=== PATIENT | female | born 1980 | race Caucasian/White ===

== ENCOUNTER 2016-09-17 15:55 | Emergency (ER) | payer MEDICAID ==
[2016-09-17 17:11] VITALS: BP 145/104
[2016-09-17] MEDS ORDERED: Ketorolac 60 MG/2 ML SDV IM ONE (17:18)
--- NOTE | 2016-09-17 17:32 | EDM.PDOC ---
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 She has severe tooth pain and would not get to a dentist until after the . 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 ) Location: Reports: Face Associated Symptoms: Reports: No Other Symptoms - Related Data Allergies Allergy/AdvReac Type Severity Reaction Status Date / Time No Known Allergies Allergy Verified 07/01/13 18:16 Home Meds: Home Meds Eletriptan [Relpax] 40 mg PO DAILY 07/01/13 [History] Dextroamphetamine/Amphetamine [Adderall] 20 mg PO TID 05/20/14 [History] Social & Family History - Tobacco Use Smoking Status *Q: Current Every Day Smoker Years of Tobacco use: 8 ED ROS ENT - Review of Systems Review Of Systems: See Below Constitutional: Reports: No Symptoms HEENT: Reports: Dental Pain Respiratory: Reports: No Symptoms Cardiovascular: Reports: No Symptoms Endocrine: Reports: No Symptoms GI/Abdominal: Reports: No Symptoms : Reports: No Symptoms ED EXAM, ENT - Physical Exam Exam: See Below Text/Narrative:: pt has pain in the left upper molar area. She is very uncomfortable today. 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 Exam Limited By: No Limitations General Appearance: Alert, Mild Distress Ears: Normal TMs Nose: Normal Inspection Mouth/Throat: Dental Pain, Dental Tenderness, Other ( pt has a carious tooth in the leftlar are. upper molar area. this tooth is very tender. ) Head: Atraumatic Neck: Normal Inspection Respiratory/Chest: No Respiratory Distress Course - Vital Signs Last Recorded V/S: Last Vital Signs Temp 35.9 C 09/17/16 17:09 Pulse 94 09/17/16 17:09 Resp 14 09/17/16 17:09 BP 145/104 H 09/17/16 17:09 Pulse Ox 99 09/17/16 17:09 - Orders/Labs/Meds Meds: Medications Discontinued Medications Generic Name Dose Route Start Last Admin Trade Name Sil PRN Reason Stop Dose Admin Ketorolac Tromethamine 60 mg 09/17/16 17:18 Toradol IM 09/17/16 17:19 ONETIME ONE - Re-Assessments/Exams Free Text/Narrative Re-Assessment/Exam: 09/17/16 17:39 pt was given torodol 60mg im for pain. Departure - Departure Time of Disposition: 17:33 Disposition: Home, Self-Care 01 Condition: Fair Clinical Impression: Infected tooth - Discharge Information Referrals: Kiah Graham PA [Primary Care Provider] - Forms: ED Department Discharge Care Plan Goals: dental appt on Thursday at 8 fifteen., amoxicillin 500mg tid, tramodol 50mg q6h as needed for pain.
== END 2016-09-17 17:51 | disposition home or self-care (01) ==
LOC: JP.ED 15:55
DX: K04.7 Periapical abscess without sinus (principal); F17.210 Nicotine dependence, cigarettes, uncomplicated; Z79.899 Other long term (current) drug therapy
CPT/HCPCS: 96372; 99283; J1885

== ENCOUNTER 2016-09-17 20:38 | Emergency (ER) | payer MEDICAID | END 2016-09-17 21:00 | disposition left against medical advice (07) | LOC: JP.ED 20:38 | DX: Z53.21 Procedure and treatment not carried out due to patient leaving prior to being seen by health care provider (principal) ==

== ENCOUNTER 2016-09-18 21:19 | Emergency (ER) | payer MEDICAID ==
[2016-09-18 21:32] VITALS: BP 161/120
--- NOTE | 2016-09-18 21:48 | EDM.PDOC ---
ED HPI GENERAL MEDICAL PROBLEM - General Chief Complaint: ENT Problem Stated Complaint: TOOTH PAIN Time Seen by Provider: 09/18/16 21:33 Source of Information: Reports: Patient History Limitations: Reports: No Limitations - History of Present Illness INITIAL COMMENTS - FREE TEXT/NARRATIVE: dental pain; this is the 3 rd visit this week for dental pain tooth #30. she was seen by providers given Tramadol #20 tabs, has taken 6 tabs, not helping with pain, and amoxicillin x 24 hours. here for evaluation. she has appointment on September 24, 2016. 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: Other (see below) - Related Data Allergies Allergy/AdvReac Type Severity Reaction Status Date / Time No Known Allergies Allergy Verified 07/01/13 18:16 Home Meds: Home Meds Eletriptan [Relpax] 40 mg PO DAILY 07/01/13 [History] Dextroamphetamine/Amphetamine [Adderall] 20 mg PO TID 05/20/14 [History] Past Medical History [employer] History: Reports: Neurological History: Reports: Migraines - Past Surgical History GI Surgical History: Reports: Appendectomy, Cholecystectomy Female Surgical History: Reports: Section, Tubal Ligation Social & Family History - Tobacco Use Smoking Status *Q: Current Every Day Smoker Years of Tobacco use: 10 Packs/Tins Daily: 0.2 Used Tobacco, but Quit: No - Caffeine Use Caffeine Use: Reports: Soda - Recreational Drug Use Recreational Drug Use: No ED ROS ENT - Review of Systems Review Of Systems: See Below Constitutional: Reports: Other (in pain/distress) HEENT: Reports: Dental Pain Respiratory: Reports: No Symptoms Cardiovascular: Reports: No Symptoms ED EXAM, ENT - Physical Exam Exam: See Below Exam Limited By: No Limitations General Appearance: Alert, WD/WN, Mild Distress Eye Exam: Bilateral Eye: Normal Inspection Ears: Normal External Exam Nose: Normal Inspection Mouth/Throat: Dental Pain (tooth has filling loss, expose middle portion of tooth, extreme pain to light touch. gums tender to touch), Dental Tenderness Head: Atraumatic, Normocephalic Neck: Normal Inspection, Supple, Non-Tender, Full Range of Motion Respiratory/Chest: No Respiratory Distress Course - Vital Signs Last Recorded V/S: Last Vital Signs Temp 37.4 C 09/18/16 21:33 Pulse 108 H 09/18/16 21:33 Resp 20 09/18/16 21:33 BP 161/120 H 09/18/16 21:33 Pulse Ox 97 09/18/16 21:33 Departure - Departure Time of Disposition: 21:56 Disposition: Home, Self-Care 01 Condition: Good Clinical Impression: Dental caries extending into dentin - Discharge Information Referrals: Kiah Graham PA [Primary Care Provider] - Forms: ED Department Discharge Care Plan Goals: dental pain -continue to take Amoxicillin as prescribed -continue to take Motrin or Tylenol for pain -continue Tramadol as directed for pain -script Hydrocodone 5-325mg; take one every 4 to6 hours as needed for pain #6 advise soft diet, avoid crunchy, spicy foods apply heat or ice to face for comfort Keep appointment with Dental Clinic Given phone number for [facility] to be seen for dental care damien. - Problem List & Annotations (1) Dental caries extending into dentin SNOMED Code(s): 156655749 Code(s): K02.62 - DENTAL CARIES ON SMOOTH SURFACE PENETRATING INTO DENTIN Status: Acute Priority: Medium Current Visit: Yes - Problem List Review Problem List Initiated/Reviewed/Updated: Yes - Assessment/Plan Plan: dental pain -continue to take Amoxicillin as prescribed -continue to take Motrin or Tylenol for pain -continue Tramadol as directed for pain -script Hydrocodone 5-325mg; take one every 4 to6 hours as needed for pain #6 advise soft diet, avoid crunchy, spicy foods apply heat or ice to face for comfort Keep appointment with Dental Clinic Given phone number for [facility] to be seen for dental care damien.
== END 2016-09-18 22:09 | disposition home or self-care (01) ==
LOC: JP.ED 21:19
DX: K02.9 Dental caries, unspecified (principal); G43.909 Migraine, unspecified, not intractable, without status migrainosus; F17.210 Nicotine dependence, cigarettes, uncomplicated; Z90.49 Acquired absence of other specified parts of digestive tract; Z98.51 Tubal ligation status; Z79.899 Other long term (current) drug therapy
CPT/HCPCS: 99283

== ENCOUNTER 2018-05-13 14:31 | Emergency (ER) | payer MEDICAID ==
[2018-05-13 14:55] VITALS: BP 172/107
--- NOTE | 2018-05-13 15:12 | EDM.PDOC ---
ED HPI GENERAL MEDICAL PROBLEM - General Chief Complaint: General Stated Complaint: ABCESSED TOOTH/POSSIBLE INFECTION Time Seen by Provider: 05/13/18 15:00 Source of Information: Reports: Patient History Limitations: Reports: No Limitations - History of Present Illness INITIAL COMMENTS - FREE TEXT/NARRATIVE: 38-year-old female with a right mandibular dental pain, was seen in the dentist 2 days ago and started on clindamycin. She feels she is not improving so she called the dentist and he told her to come to the emergency room for "IV antibiotics". She's had no fever or chills. It hurts under the right mandible when she swallows which is unchanged. No vomiting. Onset: Gradual Duration: Day(s): (Several days) Location: Reports: Face Associated Symptoms: Reports: Malaise. Denies: Fever/Chills, Shortness of Breath Right Lower Jaw Pain Score (Numeric/FACES): 9 - Related Data Allergies Allergy/AdvReac Type Severity Reaction Status Date / Time No Known Allergies Allergy Verified 05/13/18 14:51 Home Meds: Home Meds Eletriptan [Relpax] 40 mg PO DAILY 07/01/13 [History] Dextroamphetamine/Amphetamine [Adderall] 20 mg PO TID 05/20/14 [History] Methadone HCl [Methadone] 100 mg PO DAILY 05/13/18 [History] Past Medical History HEENT History: Reports: Other (See Below) Other HEENT History: Dental Carries Gastrointestinal History: Reports: None Genitourinary History: Reports: None 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: Neurological History: Reports: Migraines - Infectious Disease History Infectious Disease History: Reports: Chicken Pox - Past Surgical History Head Surgeries/Procedures: Reports: None GI Surgical History: Reports: Appendectomy, Cholecystectomy Female Surgical History: Reports: Section, Tubal Ligation Neurological Surgical History: Reports: None Dermatological Surgical History: Reports: None Social & Family History - Family History Family Medical History: Unobtainable - Tobacco Use Smoking Status *Q: Current Every Day Smoker Years of Tobacco use: 15 Packs/Tins Daily: 0.5 Used Tobacco, but Quit: No - Caffeine Use Caffeine Use: Reports: Coffee, Soda - Recreational Drug Use Recreational Drug Use: Yes Drug Use in Last 12 Months: No ED ROS GENERAL - Review of Systems Review Of Systems: See Below Constitutional: Reports: Malaise, Decreased Appetite. Denies: Fever, Chills HEENT: Reports: Dental Pain Respiratory: Reports: No Symptoms Cardiovascular: Reports: No Symptoms GI/Abdominal: Reports: Nausea. Denies: Vomiting : Reports: No Symptoms Skin: Denies: Erythema ED EXAM, GENERAL - Physical Exam Exam: See Below Exam Limited By: No Limitations General Appearance: Alert, No Apparent Distress Throat/Mouth: Other (There is advanced dental decay of the right second molar but no significant gingival erythema or swelling) Head: Other (There is slight fullness in the submandibular area with tenderness on the right side, no swelling over the mandible itself or the ducal mucosa.) Neck: No: Lymphadenopathy (R), Lymphadenopathy (L) Course - Vital Signs Last Recorded V/S: Last Vital Signs Temp 98.1 F 05/13/18 14:55 Pulse 93 05/13/18 14:55 Resp 16 05/13/18 14:55 BP 172/107 H 05/13/18 14:55 Pulse Ox 99 05/13/18 14:55 - Orders/Labs/Meds Meds: Medications Discontinued Medications Generic Name Dose Route Start Last Admin Trade Name Freq PRN Reason Stop Dose Admin Ampicillin Sodium/Sulbactam 50 mls @ 100 mls/hr 05/13/18 15:16 05/13/18 15:28 Sodium 1.5 gm/ Sodium Chloride IV 05/13/18 15:45 100 mls/hr ONETIME ONE Administration Methylprednisolone Sodium Succinate 125 mg 05/13/18 15:26 05/13/18 15:52 Solu-Medrol IVPUSH 05/13/18 15:27 125 mg ONETIME ONE Administration - Re-Assessments/Exams Free Text/Narrative Re-Assessment/Exam: 05/13/18 15:19 Discussed the case with the dentist. We will give the patient 1.5 g of IV Unasyn and she can continue the clindamycin. 05/13/18 15:26 Patient was also given 125 mg of IV Solu-Medrol. Departure - Departure Time of Disposition: 15:58 Disposition: Home, Self-Care 01 Condition: Good Clinical Impression: Dental abscess - Discharge Information Instructions: Dental Abscess, [id number] Referrals: Kiah Graham PA [Primary Care Provider] - Forms: ED Department Discharge Care Plan Goals: Continue with your antibiotic as prescribed. Recheck in the next 2-3 days if not improving satisfactorily.
[2018-05-13] MEDS ORDERED: Ampicillin/Sulbactam Na 1.5 GM in Sodium Chloride 0.9% 50 ML IV ONE (15:16)
[2018-05-13] MEDS ORDERED: methylPREDNISolone Sodium Succinate 125 MG/2 ML SDV IVPUSH ONE (15:26)
== END 2018-05-13 16:00 | disposition home or self-care (01) ==
LOC: JP.ED 14:31
DX: K04.7 Periapical abscess without sinus (principal); F17.210 Nicotine dependence, cigarettes, uncomplicated; Z79.899 Other long term (current) drug therapy
CPT/HCPCS: 96365; 96375; 99283; J0287; J2930; J7050

== ENCOUNTER 2020-07-05 05:41 | Day surgery (SDC) | payer MEDICAID ==
[2020-07-05] MEDS ORDERED: Dextrose 5%-Lactated Ringers 1,000 ML IV SCH (06:15)
[2020-07-05] MEDS ORDERED: Propofol 200 MG/20 ML SDV ONE (07:01)
[2020-07-05] MEDS ORDERED: Midazolam 1 MG/ML 2 ML SDV ONE (07:01)
[2020-07-05] MEDS ORDERED: fentaNYL 100 MCG/2 ML SDV ONE (07:01)
[2020-07-05] MEDS ORDERED: Glycopyrrolate 0.2 MG/ML 2 ML SDV IVPUSH ONE (07:15)
[2020-07-05 09:15] VITALS: BP 126/77; PULSE 85
[2020-07-05] MEDS ORDERED: fentaNYL 250 MCG/5 ML SDV ONE (11:11)
--- NOTE | 2020-07-09 13:12 | OR ---
DATE OF PROCEDURE: 07/05/2020 SURGEON: Olvin Fernando MD PREOPERATIVE DIAGNOSIS: Severe gastroesophageal reflux disease. POSTOPERATIVE DIAGNOSIS: Severe reflux symptoms secondary to marked gastroparesis with a massive gastric bezoar. OPERATIVE PROCEDURE: Esophagogastroduodenoscopy with antral biopsies for CLOtest. ANESTHESIA: IV sedation. INDICATIONS FOR PROCEDURE: This is a 40-year-old female presenting with progressively worsening reflux symptoms despite ongoing proton pump inhibitor use. For diagnostic purposes, the patient had undergone upper endoscopy with biopsies as indicated. Potential risks including bleeding and perforation were discussed, and the patient wishes to proceed. DETAILS OF PROCEDURE: The patient was taken to the operating room, placed in a left lateral decubitus position. IV sedation was administered, after which the upper GI endoscope was passed orally through the length of the esophagus into the stomach with retroflexion view of the fundus, and thereafter through the pyloric channel into the junction of the third and fourth portions of the duodenum. Findings included some reddening in the hypopharynx and larynx consistent with some ongoing reflux within the esophagus. There was no significant hiatal hernia and no gross inflammation or upward migration of the gastroesophageal junction or mucosal line; however, the striking finding was in the stomach with the gastric volume being released half full of old vegetable type matter consistent with a large bezoar and indicative of the patient having had quite severe gastroparesis. She is not diabetic at least at this point diagnostically, but is on chronic high-dose narcotics which are unlikely to be able to be eliminated. There was some reddening in the antrum probably related to pressure over this gastric wall related to the bezoar. The pyloric channel was wide open and visualized portions of the duodenum were unremarkable. The scope was pulled back into the antrum. Biopsy obtained there from the antrum for CLOtest for H pylori. Minimal bleeding from the biopsy sites was seen and the procedure then concluded. After discussion of the situation with the patient it is evident that she has severe gastroparesis and unlikely to have a satisfactory long-term outcome with regard to medical management. If the patient was much older, one would try to walk her through this, but at age 40, she would like to have more of a definitive procedure and we will plan to proceed tomorrow with a high partial gastrectomy with Eugenia-en-Y gastric gastrojejunostomy and possible esophagogastrectomy depending on the quality of the stomach at the level of the esophagogastric junction. The situation will be reviewed further tomorrow morning with the patient and she will be visiting with dietary today to review dietary limitations or restrictions, which will also be undertaken tomorrow morning. Olvin Fernando MD /[id number]
== END 2020-07-05 09:25 | disposition home or self-care (01) ==
LOC: JP.SDS 05:41
PROVIDERS: ATTEND Surgery
DX: K31.84 Gastroparesis (principal); K21.9 Gastro-esophageal reflux disease without esophagitis; F17.200 Nicotine dependence, unspecified, uncomplicated; Z88.6 Allergy status to analgesic agent
CPT/HCPCS: 36415; 43239; 80053; 83735; 84100; 85027; 86850; 86900; 86901; 87081; J2250; J2704; J3010; J3490; J7121

== ENCOUNTER 2020-07-06 08:00 | Inpatient (IN) | payer MEDICAID ==
[~2020-07-06 08:00] MED LIST: Acetaminophen 500 MG Tab PO ONE; Celecoxib 200 MG Cap PO ONE; Dexamethasone 4 MG/ML SDV ONE; Glycopyrrolate 0.2 MG/ML 5 ML MDV ONE; Neostigmine Methylsulfate 1 MG/ML 5 ML Syringe ONE; Ondansetron 4 MG/2 ML SDV ONE; Propofol 200 MG/20 ML SDV ONE; Rocuronium 50 MG/5 ML Vial ONE; Succinylcholine 200 MG/10 ML MDV ONE; cefOXitin 2 GM Vial ONE; fentaNYL 250 MCG/5 ML SDV ONE
[2020-07-06] MEDS ORDERED: Dextrose 5%-Lactated Ringers 1,000 ML IV SCH (08:30)
[2020-07-06] MEDS ORDERED: Amphetamine/Dextroamphetamine Salts 10 MG Tab PO ONE (08:45)
[2020-07-06] MEDS ORDERED: cefOXitin 2 GM in Sodium Chloride 0.9% 50 ML IV ONE (09:30)
[2020-07-06] MEDS ORDERED: Ketamine 50 MG in Sodium Chloride 0.9% 49.5 ML IV SCH (10:15)
[2020-07-06] MEDS ORDERED: Magnesium Sulfate 2.4 GM in Sodium Chloride 0.9% 100 ML IV SCH (10:15)
[2020-07-06] MEDS ORDERED: Ketamine 500 MG/5 ML MDV IV SCH (10:15)
[2020-07-06] MEDS ORDERED: fentaNYL 250 MCG/5 ML SDV ONE (10:25)
[2020-07-06] MEDS ORDERED: Lactated Ringers 1,000 ML ONE (11:25)
[2020-07-06] MEDS ORDERED: Meropenem 500 MG SDV ONE (12:11)
[2020-07-06] MEDS ORDERED: Rocuronium 50 MG/5 ML Vial ONE (12:22)
[2020-07-06] MEDS ORDERED: Sugammadex Sodium 200 MG/2 ML VIAL ONE (12:32)
[2020-07-06] MEDS ORDERED: fentaNYL 100 MCG/2 ML SDV ONE (12:43)
[2020-07-06] MEDS ORDERED: Naloxone 0.4 MG/ML SDV IVPUSH PRN (13:05)
[2020-07-06] MEDS: HYDROmorphone/Normal Saline 15 MG/30 ML PCA IV PRN ×2 (13:14→22:00)
[2020-07-06] MEDS ORDERED: Naloxone 0.4 MG/ML SDV IV PRN (14:00)
[2020-07-06] MEDS ORDERED: Non-Formulary Medication 1 Each IV ONE (14:10)
[2020-07-06] MEDS: Dextrose 5%-Lactated Ringers 1,000 ML IV SCH ×2 (14:11→21:06)
[2020-07-06] MEDS: hydrOXYzine HCL 100 MG/2 ML SDV IM PRN ×2 (14:38→18:53)
[2020-07-06] MEDS ORDERED: Metoclopramide 10 MG/2 ML SDV IVPUSH PRN (15:00)
[2020-07-06] MEDS ORDERED: diphenhydrAMINE 50 MG/ML SDV IVPUSH PRN (15:00)
[2020-07-06] MEDS ORDERED: Albuterol/Ipratropium 3.0-0.5 MG/3 ML Neb Soln INH PRN (15:00)
[2020-07-06] MEDS ORDERED: Calcium Gluconate 10% 1 GM/10 ML SDV IVPUSH PRN (15:00)
[2020-07-06] MEDS ORDERED: Acetaminophen 500 MG Tab PO PRN (15:00)
[2020-07-06] MEDS ORDERED: Labetalol 20 MG/4 ML Syringe IVPUSH PRN (15:00)
[2020-07-06] MEDS ORDERED: Ondansetron 4 MG/2 ML SDV IVPUSH PRN (15:00)
[2020-07-06] MEDS: Amphetamine/Dextroamphetamine Salts 10 MG Tab PO SCH (15:21)
[2020-07-06] MEDS: Cyclobenzaprine 10 MG Tab PO PRN (15:21)
[2020-07-06] MEDS: Acetaminophen 500 MG Tab PO SCH (15:22)
[2020-07-06] MEDS: cefOXitin 2 GM in Sodium Chloride 0.9% 50 ML IV SCH ×2 (15:23→21:06)
[2020-07-06] MEDS ORDERED: MVI, Adult with Vitamin K 10 ML, Thiamine 200 MG, Zinc/Copper/Manganese/Selenium 1 ML i... IV SCH ×4 (16:00)
[2020-07-06] MEDS ORDERED: Pantoprazole 40 MG Vial IVPUSH SCH (16:00)
[2020-07-06] MEDS: Heparin Sodium 5,000 Units/ML Vial SUBCUT SCH (20:32)
[2020-07-06] MEDS: Oxybutynin 5 MG Tab PO SCH (20:32)
[2020-07-06] MEDS: SUMAtriptan 50 MG Tab PO PRN (22:26)
[2020-07-07] MEDS: Acetaminophen 500 MG Tab PO SCH ×4 (00:10→23:44)
[2020-07-07] MEDS ORDERED: Iopamidol 612 MG/ML 50 ML SDV PO PRN (03:07)
[2020-07-07] MEDS: hydrOXYzine HCL 100 MG/2 ML SDV IM PRN ×2 (03:12→13:16)
[2020-07-07] MEDS: cefOXitin 2 GM in Sodium Chloride 0.9% 50 ML IV SCH ×4 (03:12→21:20)
[2020-07-07] MEDS: SUMAtriptan 50 MG Tab PO PRN (03:53)
[2020-07-07] MEDS: Dextrose 5%-Lactated Ringers 1,000 ML IV SCH ×2 (03:53→10:20)
[2020-07-07] MEDS: Cyclobenzaprine 10 MG Tab PO PRN ×3 (06:24→23:15)
[2020-07-07] MEDS: Amphetamine/Dextroamphetamine Salts 10 MG Tab PO SCH ×3 (08:37→16:09)
[2020-07-07] MEDS: Celecoxib 200 MG Cap PO SCH ×2 (08:38→20:39)
[2020-07-07] MEDS: Heparin Sodium 5,000 Units/ML Vial SUBCUT SCH ×2 (08:38→20:39)
[2020-07-07] MEDS: Oxybutynin 5 MG Tab PO SCH ×2 (08:39→20:39)
[2020-07-07] MEDS: Methadone Oral Concentrate 10 MG/1 ML U/D Cup PO SCH (08:39)
[2020-07-07] MEDS: Penicillin V Potassium 250 MG Tab PO SCH ×3 (10:35→22:22)
[2020-07-07] MEDS: HYDROmorphone/Normal Saline 15 MG/30 ML PCA IV PRN ×2 (12:58→21:13)
[2020-07-07] MEDS ORDERED: MVI, Adult with Vitamin K 10 ML, Thiamine 200 MG, Zinc/Copper/Manganese/Selenium 1 ML i... IV SCH ×4 (16:00)
[2020-07-07] MEDS: Pantoprazole 40 MG Delayed-Release Granules 1 Packet PO SCH (20:39)
[2020-07-08] MEDS: Penicillin V Potassium 250 MG Tab PO SCH ×2 (04:09→09:34)
[2020-07-08] MEDS: HYDROmorphone/Normal Saline 15 MG/30 ML PCA IV PRN (05:14)
[2020-07-08] MEDS ORDERED: Lidocaine 1% with EPINEPHrine 1:100,000 50 ML MDV ONE (06:40)
[2020-07-08] MEDS ORDERED: Meropenem 500 MG SDV ONE (06:40)
[2020-07-08] MEDS ORDERED: Bupivacaine 0.5% 50 ML MDV ONE (06:40)
[2020-07-08] MEDS ORDERED: fentaNYL 100 MCG/2 ML SDV ONE (07:13)
[2020-07-08] MEDS ORDERED: Midazolam 1 MG/ML 2 ML SDV ONE (07:14)
[2020-07-08] MEDS ORDERED: Propofol 200 MG/20 ML SDV ONE ×4 (07:14→08:20)
[2020-07-08] MEDS: Dextrose 5%-Lactated Ringers 1,000 ML IV SCH ×2 (07:39→14:28)
[2020-07-08] MEDS ORDERED: Cyanocobalamin (Vitamin B12) 1,000 MCG/ML SDV IM ONE (09:00)
[2020-07-08] MEDS: Heparin Sodium 5,000 Units/ML Vial SUBCUT SCH ×2 (09:32→19:50)
[2020-07-08] MEDS: Acetaminophen 500 MG Tab PO SCH ×2 (09:33→16:10)
[2020-07-08] MEDS: Celecoxib 200 MG Cap PO SCH ×2 (09:33→20:30)
[2020-07-08] MEDS: Methadone Oral Concentrate 10 MG/1 ML U/D Cup PO SCH (09:33)
[2020-07-08] MEDS: Amphetamine/Dextroamphetamine Salts 10 MG Tab PO SCH ×3 (09:35→16:10)
[2020-07-08] MEDS: Oxybutynin 5 MG Tab PO SCH (09:43)
[2020-07-08] MEDS: Bisacodyl 5 MG Tab PO SCH ×2 (10:34→20:30)
[2020-07-08] MEDS: oxyCODONE 5 MG Tab PO PRN ×2 (16:10→19:50)
[2020-07-08] MEDS: Pantoprazole 40 MG Delayed-Release Granules 1 Packet PO SCH (20:30)
[2020-07-09] MEDS: Acetaminophen 500 MG Tab PO SCH ×2 (01:40→07:25)
[2020-07-09] MEDS: oxyCODONE 5 MG Tab PO PRN ×2 (01:56→07:24)
[2020-07-09 06:55] VITALS: BP 129/80; PULSE 88
[2020-07-09] MEDS: Heparin Sodium 5,000 Units/ML Vial SUBCUT SCH (07:25)
[2020-07-09] MEDS: Amphetamine/Dextroamphetamine Salts 10 MG Tab PO SCH (07:33)
[2020-07-09] MEDS: Celecoxib 200 MG Cap PO SCH (08:29)
[2020-07-09] MEDS: Bisacodyl 5 MG Tab PO SCH (08:30)
[2020-07-09] MEDS: Methadone Oral Concentrate 10 MG/1 ML U/D Cup PO SCH (08:32)
[2020-07-09] MEDS ORDERED: Oxybutynin 5 MG Tab PO SCH (09:00)
--- NOTE | 2020-07-09 10:04 | CR ---
UGI Limited HISTORY: Postbariatric surgery FINDINGS: Patient swallowed water-soluble contrast. Upright views of the abdomen show no evidence of extravasation or obstruction. There is a surgical drain in the left upper quadrant. There is moderate fecal retention IMPRESSION: Status post bariatric surgery No extravasation or obstruction seen
--- NOTE | 2020-07-09 11:20 | OR ---
DATE OF PROCEDURE: 07/06/2020 SURGEON: Olvin Fernando MD PREOPERATIVE DIAGNOSIS: Severe gastroparesis associated with large gastric bezoar. POSTOPERATIVE DIAGNOSES: 1. Severe gastroparesis associated with large gastric bezoar. 2. Paraesophageal diaphragmatic hernia. OPERATIVE PROCEDURES: Exploratory laparotomy with: 1. Esophagogastrectomy with Eugenia-en-Y esophagojejunostomy (41062). 2. Repair of paraesophageal diaphragmatic hernia (30518). ANESTHESIA: General. ATTENUATOR: Mouna Burkett PA-C INDICATIONS FOR PROCEDURE: This is a 40-year-old female presenting with severe reflux symptoms. She was seen yesterday with an upper endoscopy that showed ongoing inflammation of hypopharynx and larynx. There was not much in the way of gross inflammation of the distal esophagus, but the striking finding was of a very large bezoar diagnostic of the gastroparesis. A long discussion was held with the patient yesterday as well and again this morning regarding treatment options, medical management in this case would be lifetime more or less nagging problem with the patient being risk for problems with aspiration and pulmonary complications over time. Given this, she wished to proceed with somewhat more definitive procedure which would include a high pressure gastrectomy, possible esophagogastrectomy with Eugenia-en-Y reconstruction. She is aware this will result in a significant amount of weight loss. She is somewhat obese, so that would be to some degree helpful, but she is aware we will likely go through a period of time where we need to be vigilant in terms of maintenance of adequate caloric and protein intake and that a lifetime vitamin and other supplemental regimen would be required. Otherwise, potential risks including bleeding, infection, leaks from various GI tract closures, problems with stricturing at the jejunal anastomosis along with the remote possibility of cardiopulmonary, septic, or hemorrhagic complications leading to were all discussed, and the patient wishes to proceed. The patient was seen by Dietary both yesterday and today to review the postoperative regimen. DETAILS OF PROCEDURE: The patient was taken to the operating room, and after general endotracheal anesthesia was induced, a Armando catheter was inserted and the abdomen prepped and draped. We elected to do an upper midline incision in order to securely evacuate the bezoar contents as well as hopefully use a 28 EEA for the proximal anastomosis, which would allow less problems with stricturing. Given this, the upper midline incision was made and carried down through the skin, subcutaneous tissue, and fascia. Upon entering the peritoneal cavity, general exploration was undertaken. As expected, the stomach was markedly distended and generally somewhat boggy. At this point, the liver was retracted medially over the area of esophagogastric junction and an Ricki tube was then placed orally to help identify the course of the esophagus there as I entered the stomach. At this point, the area of the stomach just below the esophagogastric junction was encircled, and after removal of the Ricki tube, this was divided with FRAN black load. The stomach in this area was quite thickened. At this point, the anvil had been previously placed into the gastrotomy and positioned above the level of the divided stomach. This was a 28 mm EEA anvil and this was brought out through the divided staple line proximally. The bezoar contents were then to the large extent evacuated from the gastrotomy and this was then closed. The proximal stomach was then resected as well with a series of FRAN vicki and that specimen then delivered from the field. This contained some additional palpable bezoar material within it as well. At this point, the Eugenia limb was fashioned with the small bowel identified at ligament of Treitz was traced out 30 cm distal to that point which was divided transversely with a FRAN stapler. Small bowel was then traced out 100 cm distally where the [id number] enteroenterostomy was accomplished with internal firing of the Endo-FRAN 60 mm stapler. Common opening was then closed transversely with the same stapler and the angles anastomosed and mesenteric defect approximated with some 0 Ethibond stitch along with fibrin sealant. The Eugenia limb was then brought out through a retrogastric retrocolic approach. The patient was noted to have a posterior paraesophageal diaphragmatic hernia with prolapse of a portion of the gastric cardia posterior to the course of the esophagus. This was reduced and closed there with some 0 Ethibond sutures. The main body of EEA stapler was then brought up into the opened end of the Eugenia limb and connected to the anvil and the gastrojejunostomy thus created. Upon its inspection, there was some fracturing of the anastomosis indicating that the proximal stomach at this point was probably not a safe level for anastomosis. Given this, this area was then resected with division to level of the distal esophagus with FRAN black load. At this point, we reduced the size of the anvil to 25 mm diameter. This anvil was connected to the orogastric tube which was brought down through the mouth and brought through the proximal divided end of the esophagus allowing the anvil to be pulled down within the esophagus. A second opening in the Eugenia limb was then made and the 25 mm EEA stapler brought up into that and connected to the anvil united with it thus creating the esophagojejunostomy. Upon removal of the stapler, double donuts of the mucosa were noted within it and the small bowel was closed off with a vascular staple line. The esophagojejunostomy was then reinforced with some 3-0 Vicryl seromuscular stitch. The point where the small bowel passed through the transverse mesocolon was reinforced with some 3-0 Vicryl stitch and fibrin sealant. The area was irrigated with antibiotic containing saline solution. Single Tay-Andres drain was then brought out through the left subcostal area and positioned adjacent to the esophagojejunostomy from there up into the splenic fossa. Bilateral transversus abdominis plane blocks at that point had been placed and the incision was closed with #2 Vicryl stitch at the fascial level. Skin and subcutaneous tissue were felt to be high risk for wound infection if they were closed primarily and were left open for a delayed primary closure in 48 hours, and the patient was taken to the recovery room in satisfactory condition. Physician staffing assistant, Mouna Burkett, played an essential role in assisting in this case, helping to position the patient, retract structures as needed, as well as suturing and cutting sutures when indicated. Her presence improved patient safety and decreased operative time. Olvin Fernando MD /[id number]
--- NOTE | 2020-07-09 12:56 | OR ---
DATE OF PROCEDURE: 07/08/2020 SURGEON: Olvin Fernando MD PREOPERATIVE DIAGNOSIS: Open abdominal incision. POSTOPERATIVE DIAGNOSIS: Open abdominal incision. OPERATIVE PROCEDURE: Delayed primary closure of open abdominal incision. ANESTHESIA: Local plus IV sedation. INDICATIONS FOR PROCEDURE: The patient is 48 hours status post esophagogastrectomy with a large amount of gastric-retained material. Due to gastroparesis, she was felt to be high risk for wound infection if a primary closure was undertaken. Therefore, the skin and subcutaneous tissue were packed open for a planned delayed primary closure at this time. Potential risks including bleeding and infection were reviewed, and the patient wishes to proceed. DETAILS OF PROCEDURE: The patient was taken to the operating room, placed in a supine position. After IV sedation was administered, the operative dressing was taken down, and the incision inspected and found to be clean. It was then prepped and draped, anesthetized with 1% lidocaine mixed with Marcaine, and the wound irrigated with meropenem-containing saline solution. Using ultrasound guidance, bilateral subcostal transversus abdominis plane blocks were placed, and the incision then closed with layers of 3-0 and 4-0 Vicryl stitch deep and vicki for the skin. Incision was from the xiphoid to the umbilicus. Dressing was applied. The patient was taken to the recovery room in satisfactory condition. Olvin Fernando MD /[id number]
--- NOTE | 2020-07-09 13:02 | PN ---
DATE OF SERVICE: 07/07/2020 The patient has been afebrile with stable vital signs. Upper GI x-ray looks good with good flow through the esophagojejunostomy and through the small bowel. Overnight, no major problems were noted. She is still a little bit low in terms of pain management. She currently is on methadone 100 mg a day, so she obviously has some tolerance to narcotics. We will bump up the IR[employer] MOSS G[employer]ERER dose from 0.4 to 0.5 mg Dilaudid 10 minutes. Otherwise, she will have a delayed primary closure tomorrow. We will restart her penicillin which we treated for dental abscess, and otherwise maximize activity and work with pulmonary toilet. Armando catheter will be coming out. Olvin Fernando MD /[id number]
--- NOTE | 2020-07-09 13:12 | PN ---
DATE OF SERVICE: 07/08/2020 The patient has been afebrile with stable vital signs. Urine output has been satisfactory, and oral intake was around 500 mL. She underwent a delayed primary closure of abdominal incision today without difficulty. We will restart a step-2 diet. We will leave her on the [employer] for today. She does have little bit of narcotic tolerance due to methadone use so is requiring a somewhat higher than typical Dilaudid for pain control. We will add some Dulcolax oral tablets today to try to stimulate some bowel activity as well. Otherwise, maximize activity and work with pulmonary toilet. Olvin Fernando MD /[id number]
--- NOTE | 2020-07-09 15:03 | DISCH ---
ADMISSION DIAGNOSES: 1. Severe gastroparesis. 2. Large bezoar. 3. Chronic low back pain without sciatica. 4. Methadone dependence. DISCHARGE DIAGNOSES: Exploratory laparotomy and esophagogastrectomy with Eugenia-en-Y esophagogastrectomy, repair of paraesophageal hernia. Date: 07/06/2020. Surgeon: Olvin Fernando MD. POSTOPERATIVE DIAGNOSES: 1. Severe gastroparesis. 2. Excision of large bezoar. 3. Paraesophageal diaphragmatic hernia. HISTORY: Luz Marina Zapata is a 40-year-old female with severe gastroparesis and large bezoar. After preoperative evaluation and discussion of possible risks and possible complications, she wished to proceed with surgical procedure. HOSPITAL COURSE: Luz Marina had her surgery on 07/06/2020. She had no complications. She had a delayed primary closure on 07/08/2020 with no complications. Her vital signs were stable. Pain was managed with oxycodone. She was on a step 2 gastric bypass diet. She received dietary instruction and she was able to be discharged to home on 07/09/2020. PHYSICAL EXAMINATION: GENERAL: Luz Marina Zapata is a pleasant 40-year-old female. VITAL SIGNS: Height is 5 feet 4 inches, weight is 188 pounds, BMI is 32.3. TPR is 97.2, 88, 18, blood pressure 129/80. HEENT: Negative. NECK: Supple. HEART: Regular rate and rhythm. LUNGS: Clear. ABDOMEN: Aquacel dressings on. Abdominal binder is on. EXTREMITIES: Without peripheral edema. DISPOSITION: Discharged to home. CONDITION: Stable and improving. FOLLOWUP: Appointment with Mouna Burkett PA-C, on 07/16/2020 at 10 a.m. HOME MEDICATIONS: 1. Celebrex 200 mg p.o. b.i.d., #28. 2. Oxycodone 5 mg p.o. q.4 hours p.r.n. pain, #42. 3. She is to resume her home medications: a. Oxybutynin 5 mg p.o. b.i.d. b. Methadone 100 mg p.o. daily. c. Relpax 1 tablet p.o. daily p.r.n. d. Adderall 20 mg p.o. t.i.d. DIET: Step 2 gastric bypass diet without cereal for 2 weeks. ACTIVITY: No lifting greater than 10 pounds for 6 weeks. OTHER ACTIVITY: Walk [address] for 1 week or within 6 hours of taking oxycodone. Shower/bathing: May shower. Keep operative site clean and dry. SPECIAL INSTRUCTION: 1. Wear abdominal binder for 6 weeks and then as tolerated. 2. Take off Aquacel dressing on 07/10/2020, and put on a new one. Take the second Aquacel dressing you put on , 07/12/2020. Notify provider if any fever, increased pain, swelling, redness, drainage, nausea, or vomiting. 3. Use incentive spirometer 10 times every hour while awake for 1 week. /[id number]
== END 2020-07-09 09:30 | disposition home or self-care (01) | DRG 327 ==
LOC: JP.SDSSCHI 08:00 → JP.SDS 08:01 → EDSTATUS 10:30 → JP.MS 13:00
PROVIDERS: ADMIT Surgery; ATTEND Surgery
PROC: 0D150ZA Bypass Esophagus to Jejunum, Open Approach (ICD-10-PCS; principal; 2020-07-06)
PROC: 0BQT0ZZ Repair Diaphragm, Open Approach (ICD-10-PCS; 2020-07-06)
PROC: 0JQ80ZZ Repair Abdomen Subcutaneous Tissue and Fascia, Open Approach (ICD-10-PCS; 2020-07-08)
DX: K31.84 Gastroparesis (principal); F11.20 Opioid dependence, uncomplicated; K44.9 Diaphragmatic hernia without obstruction or gangrene; T18.9XXA Foreign body of alimentary tract, part unspecified, initial encounter; G89.29 Other chronic pain; M54.5 Low back pain; Z79.899 Other long term (current) drug therapy; K21.9 Gastro-esophageal reflux disease without esophagitis; F98.8 Other specified behavioral and emotional disorders with onset usually occurring in childhood and adolescence; F90.9 Attention-deficit hyperactivity disorder, unspecified type; E66.9 Obesity, unspecified; Z68.35 Body mass index [BMI] 35.0-35.9, adult; G43.909 Migraine, unspecified, not intractable, without status migrainosus; Z90.49 Acquired absence of other specified parts of digestive tract; Z98.41 Cataract extraction status, right eye; Z98.890 Other specified postprocedural states; Z88.5 Allergy status to narcotic agent; Z68.32 Body mass index [BMI] 32.0-32.9, adult
CPT/HCPCS: 36415; 74240; 74240-26; 80053; 83735; 84100; 85025; 93005; 94762; A9270-GY; C9113; J0171; J0330; J0694; J1100; J1170; J1644; J2185; J2250; J2405; J2704; J2710; J2795; J3010; J3410; J3411; J3420; J3475; J3490; J7050; J7120; J7121; Q9967

== ENCOUNTER 2020-10-05 06:26 | Day surgery (SDC) | payer MEDICAID ==
[~2020-10-05 06:26] MED LIST changes: -Acetaminophen 500 MG Tab PO ONE; -Celecoxib 200 MG Cap PO ONE; +Cyanocobalamin (Vitamin B12) 1,000 MCG/ML SDV IM ONE; -Dexamethasone 4 MG/ML SDV ONE; +Glycopyrrolate 0.2 MG/ML 2 ML SDV IVPUSH ONE; -Glycopyrrolate 0.2 MG/ML 5 ML MDV ONE; +Lactated Ringers 1,000 ML IV SCH; +MVI, Adult with Vitamin K 10 ML, Thiamine 200 MG, Chromium/Copper/Mang/Selen/Zn 1 ML in... IV ONE; -Neostigmine Methylsulfate 1 MG/ML 5 ML Syringe ONE; -Ondansetron 4 MG/2 ML SDV ONE; -Propofol 200 MG/20 ML SDV ONE; -Rocuronium 50 MG/5 ML Vial ONE; -Succinylcholine 200 MG/10 ML MDV ONE; -cefOXitin 2 GM Vial ONE; -fentaNYL 250 MCG/5 ML SDV ONE
[2020-10-05] MEDS ORDERED: Lactated Ringers 1,000 ML IV SCH (06:45)
[2020-10-05] MEDS ORDERED: Cyanocobalamin (Vitamin B12) 1,000 MCG/ML SDV IM ONE (07:00)
[2020-10-05] MEDS ORDERED: Midazolam 1 MG/ML 2 ML SDV ONE (07:25)
[2020-10-05] MEDS ORDERED: Propofol 200 MG/20 ML SDV ONE (07:25)
[2020-10-05] MEDS ORDERED: fentaNYL 100 MCG/2 ML SDV ONE (07:25)
[2020-10-05] MEDS ORDERED: MVI, Adult with Vitamin K 10 ML, Thiamine 200 MG, Chromium/Copper/Mang/Selen/Zn 1 ML in... IV ONE ×4 (07:45)
[2020-10-05] MEDS ORDERED: Glycopyrrolate 0.2 MG/ML 2 ML SDV IVPUSH ONE (08:00)
[2020-10-05 11:25] VITALS: BP 107/70; PULSE 67
--- NOTE | 2020-10-14 15:20 | OR ---
DATE OF PROCEDURE: 10/05/2020 SURGEON: Olvin Fernando MD PREOPERATIVE DIAGNOSIS: Possible stricture at esophagojejunostomy. POSTOPERATIVE DIAGNOSIS: Very mild stricture at esophagojejunostomy. PROCEDURE PERFORMED: Upper gastrointestinal endoscopy with dilation of esophagojejunostomy (66628). ANESTHESIA: IV sedation. INDICATION FOR PROCEDURE: The patient is status post an esophagogastrectomy and presents now with some dysphagia. The plan is to proceed with an upper GI endoscopy with dilation as indicated. Potential risks including bleeding and perforation were discussed, and the patient wishes to proceed. DETAILS OF PROCEDURE: The patient was taken to the operating room and placed in a left lateral decubitus position. IV sedation was administered after which the upper GI endoscope was passed orally through the length of the esophagus through the esophagojejunostomy and roughly 20 cm into the Eugenia limb. In general, there was no significant mucosal inflammation. The esophagojejunostomy itself was fairly wide open with the scope easily being passed through that area. We did deploy a 54-[place] balloon across the esophagojejunostomy resulting in a small amount of dilation, and no complications were noted. The procedure was then concluded. At this point, the patient has been noted to have low iron level for which she will be receiving iron infusion today and then another one in one week and then follow up with Mouna Burkett at [facility] in about 2 months. Olvin Fernando MD /[id number]
== END 2020-10-05 11:10 | disposition home or self-care (01) ==
LOC: JP.SDS 06:26
PROVIDERS: ATTEND Surgery
DX: K22.2 Esophageal obstruction (principal); D64.9 Anemia, unspecified; Z98.84 Bariatric surgery status
CPT/HCPCS: 36415; 43249; 82728; 84703; J2250; J2704; J3010; J3411; J3420; J3490; J7120; Q0138

== ENCOUNTER 2020-11-22 10:54 | Day surgery (SDC) | payer MEDICAID ==
[~2020-11-22 10:54] MED LIST changes: -Cyanocobalamin (Vitamin B12) 1,000 MCG/ML SDV IM ONE; -Glycopyrrolate 0.2 MG/ML 2 ML SDV IVPUSH ONE; +Lactated Ringers 1,000 ML IV ONE; -Lactated Ringers 1,000 ML IV SCH; -MVI, Adult with Vitamin K 10 ML, Thiamine 200 MG, Chromium/Copper/Mang/Selen/Zn 1 ML in... IV ONE; +Midazolam 1 MG/ML 2 ML SDV ONE; +Propofol 200 MG/20 ML SDV ONE; +fentaNYL 100 MCG/2 ML SDV ONE
[2020-11-22] MEDS ORDERED: Cyanocobalamin (Vitamin B12) 1,000 MCG/ML SDV IM ONE (11:00)
[2020-11-22] MEDS ORDERED: Lactated Ringers 1,000 ML IV ONE (12:00)
[2020-11-22] MEDS ORDERED: Glycopyrrolate 0.2 MG/ML 2 ML SDV IVPUSH ONE (12:00)
[2020-11-22] MEDS ORDERED: Dexamethasone 4 MG/ML SDV ONE (12:10)
[2020-11-22] MEDS ORDERED: MVI, Adult with Vitamin K 10 ML, Thiamine 200 MG, Zinc/Copper/Manganese/Selenium 1 ML i... IV ONE ×4 (13:00)
[2020-11-22 14:40] VITALS: BP 123/83; PULSE 64
--- NOTE | 2020-12-06 09:44 | OR ---
DATE OF PROCEDURE: 11/22/2020 SURGEON: Olvin Fernando MD PREOPERATIVE DIAGNOSIS: Possible stricture at esophagojejunostomy. POSTOPERATIVE DIAGNOSIS: Mild stricture at esophagojejunostomy. OPERATIVE PROCEDURE: Upper gastrointestinal endoscopy with dilation of esophagojejunostomy ([id number]). ANESTHESIA: IV sedation. INDICATION FOR PROCEDURE: The patient is status post esophagogastrectomy on 07/11 and presents now with symptoms of suggestive of stricture at esophagojejunostomy. Plan is to proceed with upper GI endoscopy with dilation as indicated. Potential risks including bleeding and perforation were discussed, and the patient wishes to proceed. DETAILS OF PROCEDURE: The patient was taken to the operating room, placed in left lateral decubitus position. IV sedation was administered, after which the upper GI endoscope was passed orally through the length of the esophagus and into the level of the esophagojejunostomy. Once the scope was able to pass through the anastomosis indicating probably a mild stricture at the level of the mucosal inflammation across the . This resulted in slight increase in diameter and no complications were noted, and the procedure was concluded. The patient was taken to the recovery room in satisfactory condition. Olvin Fernando MD /[id number]
== END 2020-11-22 14:49 | disposition home or self-care (01) ==
LOC: JP.SDS 10:54
PROVIDERS: ATTEND Surgery
DX: K91.89 Other postprocedural complications and disorders of digestive system (principal); F17.210 Nicotine dependence, cigarettes, uncomplicated; Z88.5 Allergy status to narcotic agent; E66.9 Obesity, unspecified; Z68.24 Body mass index [BMI] 24.0-24.9, adult
CPT/HCPCS: 43249; 81025; C1726; J1100; J2250; J2704; J3010; J3411; J3420; J3490; J7120

== ENCOUNTER 2021-06-11 01:48 | Emergency (ER) | payer MEDICAID ==
[2021-06-11] MEDS ORDERED: Sodium Chloride 0.9% 10 ML Syringe FLUSH PRN (02:21)
[2021-06-11] MEDS ORDERED: Sodium Chloride 0.9% 1,000 ML IV ONE (02:22)
[2021-06-11] MEDS ORDERED: Ketorolac 30 MG/ML SDV IVPUSH ONE (02:23)
[2021-06-11] MEDS ORDERED: Acetaminophen 1,000 MG in Premix Bag 1 BAG IV ONE (02:24)
[2021-06-11] MEDS ORDERED: Iopamidol 612 MG/ML 100 ML Bottle IV STA (02:47)
[2021-06-11] MEDS ORDERED: Sodium Chloride 0.9% 50 ML IV STA (02:48)
[2021-06-11 03:43] LABS: CORONAVIRUS COVID-19 NAA NEGATIVE (NEGATIVE)
[2021-06-11 04:10] VITALS: BP 117/75; PULSE 80
== END 2021-06-11 04:50 | disposition home or self-care (01) ==
LOC: JP.ED 01:48
DX: K43.2 Incisional hernia without obstruction or gangrene (principal); Z88.5 Allergy status to narcotic agent; Z72.0 Tobacco use; Z20.822 Contact with and (suspected) exposure to COVID-19
CPT/HCPCS: 0241U; 36415; 74177; 80048; 80076; 83605; 84703; 85025; 86140; 96365; 96375; 99283; 99284; J0131; J1885; J7030; Q9967

== ENCOUNTER 2021-08-13 05:30 | Inpatient (IN) | payer MEDICAID ==
[2021-08-13] MEDS ORDERED: Celecoxib 200 MG Cap PO ONE (05:45)
[2021-08-13] MEDS ORDERED: Acetaminophen 500 MG Tab PO ONE (05:45)
[2021-08-13] MEDS ORDERED: Dextrose 5%-Lactated Ringers 1,000 ML IV SCH (06:00)
[2021-08-13] MEDS ORDERED: Bupivacaine 0.5% 50 ML MDV ONE (07:00)
[2021-08-13] MEDS ORDERED: Lidocaine 1% with EPINEPHrine 1:100,000 50 ML MDV ONE (07:00)
[2021-08-13] MEDS ORDERED: Meropenem 500 MG SDV ONE (07:00)
[2021-08-13] MEDS ORDERED: Ondansetron 4 MG/2 ML SDV ONE (07:06)
[2021-08-13] MEDS ORDERED: fentaNYL 250 MCG/5 ML SDV ONE (07:06)
[2021-08-13] MEDS ORDERED: Glycopyrrolate 0.2 MG/ML 5 ML MDV ONE (07:06)
[2021-08-13] MEDS ORDERED: Propofol 200 MG/20 ML SDV ONE (07:06)
[2021-08-13] MEDS ORDERED: Rocuronium 50 MG/5 ML Vial ONE (07:06)
[2021-08-13] MEDS ORDERED: Neostigmine Methylsulfate 1 MG/ML 5 ML Syringe ONE (07:06)
[2021-08-13] MEDS ORDERED: Dexamethasone 4 MG/ML SDV ONE (07:06)
[2021-08-13] MEDS ORDERED: ceFAZolin 2 GM in Premix Bag 1 BAG IV ONE (07:15)
[2021-08-13] MEDS ORDERED: Ketamine 14 MG in Sodium Chloride 0.9% 19.86 ML IV SCH (07:30)
[2021-08-13] MEDS ORDERED: Ketamine 500 MG/5 ML MDV IV SCH (07:30)
[2021-08-13] MEDS ORDERED: diphenhydrAMINE 50 MG/ML SDV IVPUSH PRN (07:31)
[2021-08-13] MEDS ORDERED: Ondansetron 4 MG/2 ML SDV IVPUSH PRN ×2 (07:31→11:19)
[2021-08-13] MEDS ORDERED: diphenhydrAMINE 25 MG Cap PO PRN (07:31)
[2021-08-13] MEDS ORDERED: Naloxone 0.4 MG/ML SDV IVPUSH PRN (07:31)
[2021-08-13] MEDS ORDERED: Naloxone 0.4 MG/ML SDV IV PRN (08:00)
[2021-08-13] MEDS ORDERED: Labetalol 20 MG/4 ML Syringe ONE (08:09)
[2021-08-13] MEDS ORDERED: fentaNYL 100 MCG/2 ML SDV ONE (08:11)
[2021-08-13] MEDS ORDERED: Ketorolac 30 MG/ML SDV ONE (08:34)
[2021-08-13] MEDS: HYDROmorphone/Normal Saline 6 MG/30 ML PCA Vial IV PRN ×3 (08:39→22:49)
[2021-08-13] MEDS ORDERED: Sugammadex Sodium 200 MG/2 ML VIAL ONE (08:40)
[2021-08-13] MEDS ORDERED: SUMAtriptan 50 MG Tab PO PRN (11:36)
[2021-08-13] MEDS: Dextrose 5%-Lactated Ringers 1,000 ML IV SCH ×3 (11:37→23:25)
[2021-08-13] MEDS ORDERED: hydrOXYzine HCL 100 MG/2 ML SDV IM PRN (11:48)
[2021-08-13] MEDS: Amphetamine/Dextroamphetamine Salts 10 MG Tab PO SCH ×2 (12:10→16:55)
[2021-08-13] MEDS: ceFAZolin 2 GM in Premix Bag 1 BAG IV SCH ×2 (14:03→21:26)
[2021-08-13] MEDS ORDERED: Scopolamine 1.5 MG Transdermal Patch TOP ONE (17:38)
[2021-08-13] MEDS: LORazepam 2 MG/ML SDV IVPUSH PRN (17:50)
[2021-08-14] MEDS: ceFAZolin 2 GM in Premix Bag 1 BAG IV SCH (05:39)
[2021-08-14] MEDS: Amphetamine/Dextroamphetamine Salts 10 MG Tab PO SCH ×4 (07:35→16:59)
[2021-08-14] MEDS: Cyclobenzaprine 10 MG Tab PO PRN (07:35)
[2021-08-14] MEDS: Dextrose 5%-Lactated Ringers 1,000 ML IV SCH ×2 (07:37→16:57)
[2021-08-14] MEDS: HYDROmorphone/Normal Saline 6 MG/30 ML PCA Vial IV PRN ×3 (08:09→23:07)
[2021-08-14] MEDS: Methadone Oral Concentrate 10 MG/1 ML ML 30 ML Bottle PO SCH (08:31)
[2021-08-14] MEDS: Docusate Sodium 100 MG Cap PO SCH ×2 (09:55→20:31)
[2021-08-14] MEDS: Bisacodyl 5 MG Tab PO SCH ×2 (09:55→20:31)
[2021-08-14] MEDS: VERIFY SCOP PATCH TOP SCH (10:16)
[2021-08-14] MEDS: LORazepam 2 MG/ML SDV IVPUSH PRN (12:05)
[2021-08-14] MEDS ORDERED: Ondansetron 4 MG/2 ML SDV IVPUSH PRN (14:30)
[2021-08-15] MEDS: Cyclobenzaprine 10 MG Tab PO PRN (00:51)
[2021-08-15] MEDS: Dextrose 5%-Lactated Ringers 1,000 ML IV SCH (02:33)
[2021-08-15] MEDS: Bisacodyl 5 MG Tab PO SCH ×2 (08:23→22:06)
[2021-08-15] MEDS: Amphetamine/Dextroamphetamine Salts 10 MG Tab PO SCH ×3 (08:24→16:33)
[2021-08-15] MEDS: VERIFY SCOP PATCH TOP SCH (08:24)
[2021-08-15] MEDS: Docusate Sodium 100 MG Cap PO SCH ×2 (08:24→22:07)
[2021-08-15] MEDS: HYDROmorphone 2 MG Tab PO PRN ×3 (08:28→23:41)
[2021-08-15] MEDS: LORazepam 2 MG/ML SDV IVPUSH PRN ×2 (09:49→17:55)
[2021-08-15] MEDS: Methadone Oral Concentrate 10 MG/1 ML ML 30 ML Bottle PO SCH (10:48)
[2021-08-16] MEDS: HYDROmorphone 2 MG Tab PO PRN ×4 (05:52→23:57)
[2021-08-16] MEDS: Bisacodyl 5 MG Tab PO SCH ×2 (08:29→21:31)
[2021-08-16] MEDS: Docusate Sodium 100 MG Cap PO SCH ×2 (08:30→21:31)
[2021-08-16] MEDS: VERIFY SCOP PATCH TOP SCH (08:30)
[2021-08-16] MEDS: Amphetamine/Dextroamphetamine Salts 10 MG Tab PO SCH ×3 (08:30→16:14)
[2021-08-16] MEDS: Methadone Oral Concentrate 10 MG/1 ML ML 30 ML Bottle PO SCH (08:38)
[2021-08-16] MEDS ORDERED: Magnesium Hydroxide 400 MG/5 ML Susp 30 ML Cup PO SCH (09:00)
[2021-08-16] MEDS: Cyclobenzaprine 10 MG Tab PO PRN (16:15)
[2021-08-16] MEDS ORDERED: Polyethylene Glycol 3350 Powder 119 GM Bottle PO ONE (18:01)
[2021-08-16] MEDS ORDERED: Polyethylene Glycol 3350 Powder 238 GM Bot ONE (18:15)
[2021-08-17] MEDS: HYDROmorphone 2 MG Tab PO PRN ×3 (06:12→14:53)
[2021-08-17] MEDS ORDERED: Polyethylene Glycol 3350 Powder 119 GM Bottle PO PRN (08:17)
[2021-08-17] MEDS: Bisacodyl 5 MG Tab PO SCH (08:34)
[2021-08-17] MEDS: Docusate Sodium 100 MG Cap PO SCH (08:34)
[2021-08-17] MEDS: Amphetamine/Dextroamphetamine Salts 10 MG Tab PO SCH ×2 (08:35→11:51)
[2021-08-17] MEDS: VERIFY SCOP PATCH TOP SCH (08:35)
[2021-08-17] MEDS: Methadone Oral Concentrate 10 MG/1 ML ML 30 ML Bottle PO SCH (08:48)
[2021-08-17 10:56] VITALS: BP 135/94; PULSE 99
== END 2021-08-17 15:16 | disposition home or self-care (01) | DRG 344 ==
LOC: JP.SDS 05:30 → EDSTATUS 07:15 → JP.MS 08:50
PROVIDERS: ADMIT Surgery; ATTEND Surgery
PROC: 0DSA0ZZ Reposition Jejunum, Open Approach (ICD-10-PCS; principal; 2021-08-13)
PROC: 0WUF0JZ Supplement Abdominal Wall with Synthetic Substitute, Open Approach (ICD-10-PCS; 2021-08-13)
PROC: 0WUF0JZ Supplement Abdominal Wall with Synthetic Substitute, Open Approach (ICD-10-PCS; 2021-08-13)
PROC: 3E0M05Z Introduction of Adhesion Barrier into Peritoneal Cavity, Open Approach (ICD-10-PCS; 2021-08-13)
DX: K43.0 Incisional hernia with obstruction, without gangrene (principal); K56.2 Volvulus; K42.0 Umbilical hernia with obstruction, without gangrene; K21.9 Gastro-esophageal reflux disease without esophagitis; G89.29 Other chronic pain; M54.9 Dorsalgia, unspecified; G43.909 Migraine, unspecified, not intractable, without status migrainosus; Z88.5 Allergy status to narcotic agent; Z90.49 Acquired absence of other specified parts of digestive tract; Z98.51 Tubal ligation status; Z98.891 History of uterine scar from previous surgery; Z87.891 Personal history of nicotine dependence
CPT/HCPCS: 88302; A9270-GY; C1713; C1781; J0171; J0690; J1100; J1170; J1885; J2020; J2060; J2185; J2405; J2704; J2710; J2795; J3010; J3410; J3490; J7121

== ENCOUNTER 2024-09-25 15:57 | Emergency (ER) | payer MEDICAID ==
[2024-09-25 18:06] LABS: BASOPHILS ABSOLUTE AUTO 0.06 K/uL (0.00-0.10); BASOPHILS PERCENT AUTO 0.6 % (0.1-1.3); EOSINOPHILS ABSOLUTE AUTO 0.08 K/uL (0.00-0.40); EOSINOPHILS PERCENT AUTO 0.8 % (0.0-5.4); IMMATURE GRAN PERCENT AUTO 0.2 % (0.0-0.7); LYMPHOCYTES ABSOLUTE AUTO 2.19 K/uL (0.8-3.3); LYMPHOCYTES PERCENT AUTO 21.7 % (11.4-47.7); MONOCYTES ABSOLUTE AUTO 0.65 K/uL (0.20-0.90); MONOCYTES PERCENT AUTO 6.4 % (3.3-12.6); NEUTROPHILS ABSOLUTE AUTO 7.10 K/uL (1.0-7.6); NEUTROPHILS PERCENT AUTO 70.3 % (40.0-78.1); PLATELET COUNT,PLT 289 K/uL (130-375); RED BLOOD CELL COUNT 3.78 M/uL (3.77-5.24); WHITE BLOOD CELL COUNT,WBC 10.1 K/uL (3.2-11.0)
[2024-09-25 18:07] LABS: IMMATURE GRAN ABSOLUTE AUTO 0.02 K/uL (0.00-0.23)
[2024-09-25 18:27] LABS: A/G RATIO 0.8 (1.2-2.2); ALANINE AMINOTRANSFERASE,ALT 16 U/L (12-78); ASPARTATE AMNIOTRANSFERASE,AST 13 U/L (15-37); BILIRUBIN TOTAL 0.3 mg/dL (0.2-1.0); BLOOD UREA NITROGEN,BUN 11 mg/dL (7-18); CARBON DIOXIDE,CO2 30 mmol/L (21-32); CHLORIDE,CL 100 mmol/L (100-108); CREATININE 0.7 mg/dL (0.6-1.0); EST CRCL DRUG DOSING (CG) 76.58 mL/min; ESTIMATED GFR 109 mL/min (>60); GLUCOSE RANDOM 79 mg/dL (74-106); POTASSIUM,K 3.9 mmol/L (3.6-5.2); PROTEIN TOTAL,TP 6.4 g/dL (6.4-8.2); SODIUM,NA 137 mmol/L (140-148)
[2024-09-25] MEDS: Sodium Chloride 0.9% 10 ML Syringe FLUSH ONE (18:33)
[2024-09-25] MEDS: Iopamidol 612 MG/ML 100 ML Bottle IV PRN (18:34)
[2024-09-25 19:25] VITALS: BP 105/68; PULSE 71
== END 2024-09-25 19:44 | disposition home or self-care (01) ==
LOC: JP.ED 15:57
DX: L02.211 Cutaneous abscess of abdominal wall (principal); F17.210 Nicotine dependence, cigarettes, uncomplicated; Z88.5 Allergy status to narcotic agent; Z79.899 Other long term (current) drug therapy; Z90.49 Acquired absence of other specified parts of digestive tract
CPT/HCPCS: 36415; 74177; 80053; 83605; 85025; 99284; Q9967

== ENCOUNTER 2024-11-01 06:24 | Day surgery (SDC) | payer MEDICAID ==
[2024-11-01] MEDS: Lactated Ringers 1,000 ML IV SCH (06:50)
[2024-11-01] MEDS ORDERED: fentaNYL 250 MCG/5 ML SDV ONE (07:14)
[2024-11-01] MEDS ORDERED: Ondansetron 4 MG/2 ML SDV ONE (07:15)
[2024-11-01] MEDS ORDERED: Dexamethasone 4 MG/ML SDV ONE (07:15)
[2024-11-01] MEDS ORDERED: Propofol 200 MG/20 ML SDV ONE (07:15)
[2024-11-01] MEDS ORDERED: Glycopyrrolate 0.2 MG/ML 5 ML MDV ONE (07:15)
[2024-11-01] MEDS: Bupivacaine 0.25%/EPINEPHrine 1:200,000 30 ML SDV ONE (08:03)
[2024-11-01] MEDS: hydrOXYzine HCL 100 MG/2 ML SDV IM ONE (09:13)
[2024-11-01 12:04] VITALS: BP 106/74; PULSE 83
== END 2024-11-01 12:34 | disposition home or self-care (01) ==
LOC: JP.SDS 06:24
PROVIDERS: ATTEND Surgery
DX: L02.211 Cutaneous abscess of abdominal wall (principal); T83.718A Erosion of other implanted mesh to organ or tissue, initial encounter; E11.9 Type 2 diabetes mellitus without complications; F17.210 Nicotine dependence, cigarettes, uncomplicated; Z88.5 Allergy status to narcotic agent; Z79.899 Other long term (current) drug therapy
CPT/HCPCS: 00840; 22900; 87070; 87075; 87205; A9270; J0690; J1100; J1596; J2405; J2704; J2710; J3010; J3410; J7120; J3490

== ENCOUNTER 2024-11-07 12:05 | Emergency (ER) | payer MEDICAID ==
[2024-11-07 13:23] LABS: BASOPHILS ABSOLUTE AUTO 0.06 K/uL (0.00-0.10); BASOPHILS PERCENT AUTO 0.7 % (0.1-1.3); EOSINOPHILS ABSOLUTE AUTO 0.17 K/uL (0.00-0.40); EOSINOPHILS PERCENT AUTO 2.1 % (0.0-5.4); IMMATURE GRAN PERCENT AUTO 0.2 % (0.0-0.7); LYMPHOCYTES ABSOLUTE AUTO 2.19 K/uL (0.8-3.3); LYMPHOCYTES PERCENT AUTO 27.1 % (11.4-47.7); MONOCYTES ABSOLUTE AUTO 0.68 K/uL (0.20-0.90); MONOCYTES PERCENT AUTO 8.4 % (3.3-12.6); NEUTROPHILS ABSOLUTE AUTO 4.97 K/uL (1.0-7.6); NEUTROPHILS PERCENT AUTO 61.5 % (40.0-78.1); PLATELET COUNT,PLT 284 K/uL (130-375); RED BLOOD CELL COUNT 3.62 M/uL (3.77-5.24); WHITE BLOOD CELL COUNT,WBC 8.1 K/uL (3.2-11.0)
[2024-11-07 13:35] LABS: IMMATURE GRAN ABSOLUTE AUTO 0.02 K/uL (0.00-0.23)
[2024-11-07 13:43] LABS: A/G RATIO 0.9 (1.2-2.2); ALANINE AMINOTRANSFERASE,ALT 20 U/L (12-78); ASPARTATE AMNIOTRANSFERASE,AST 16 U/L (15-37); BILIRUBIN TOTAL 0.2 mg/dL (0.2-1.0); BLOOD UREA NITROGEN,BUN 9 mg/dL (7-18); CARBON DIOXIDE,CO2 31 mmol/L (21-32); CHLORIDE,CL 106 mmol/L (100-108); CREATININE 0.5 mg/dL (0.6-1.0); EST CRCL DRUG DOSING (CG) 106.99 mL/min; ESTIMATED GFR 118 mL/min (>60); GLUCOSE RANDOM 62 mg/dL (74-106); POTASSIUM,K 3.6 mmol/L (3.6-5.2); PROTEIN TOTAL,TP 6.1 g/dL (6.4-8.2); SODIUM,NA 141 mmol/L (140-148)
[2024-11-07] MEDS: Sodium Chloride 0.9% 10 ML Syringe FLUSH PRN (14:31)
[2024-11-07] MEDS: Iopamidol 612 MG/ML 100 ML Bottle IV PRN (14:31)
[2024-11-07 16:43] VITALS: BP 126/86; PULSE 64
== END 2024-11-07 19:32 | disposition home or self-care (01) ==
LOC: JP.ED 12:05
DX: L02.211 Cutaneous abscess of abdominal wall (principal); F17.210 Nicotine dependence, cigarettes, uncomplicated; Z88.5 Allergy status to narcotic agent; Z79.899 Other long term (current) drug therapy; Z90.49 Acquired absence of other specified parts of digestive tract
CPT/HCPCS: 36415; 74177; 80053; 85025; 86140; 96365; 99284; J2543; Q9967